=== PATIENT | female | born 1950 | race Caucasian/White ===

== ENCOUNTER 2022-03-29 13:00 | Emergency (ER) | payer BC ==
[2022-03-29 13:19] VITALS: BP 116/83; PULSE 92; RESP 18; TEMP 98.1; BMI 24.7
== END 2022-03-29 15:36 | disposition home or self-care (01) ==
LOC: JER 13:00
DX: M71.21 Synovial cyst of popliteal space [Baker], right knee (principal)
CPT/HCPCS: 93971-TC; 99284-25